=== PATIENT | female | born 1955 | race Caucasian/White ===

== ENCOUNTER → 2016-09-24 | Outpatient (CLI) | payer OTHER | LOC: YCFC.O 15:17 | PROVIDERS: ATTEND Nurse Practitioner Family | DX: J44.9 Chronic obstructive pulmonary disease, unspecified (principal); R63.4 Abnormal weight loss; R10.9 Unspecified abdominal pain ==

== ENCOUNTER → 2016-09-29 | Outpatient (CLI) | payer OTHER ==
--- NOTE | 2016-09-29 09:21 | RAD ---
EXAM DESCRIPTION: XR ABDOMEN 2 VIEWS SUPINE ERECT CLINICAL HISTORY: POS SMOKER, UNRESOLVED COUGH AND WEIGHT LOSS, TENDERNESS COMPARISON: None. IMPRESSION: AP portable supine and upright views of the abdomen show a nonspecific, nonobstructive bowel gas pattern with no obvious free intraperitoneal air. There is a 1 cm irregular calcification overlying the midpole of the left kidney that could represent nephrolithiasis. There appear to be postsurgical changes from posterior bony fusion left greater than right from L3 through S1. Visualized lung bases are unremarkable. Electronically signed by: Thomas Dowell MD 09/29/2016 09:18
--- NOTE | 2016-09-29 10:17 | CT ---
EXAM DESCRIPTION: CT CHEST WITH IV CONTRAST; CT ABDOMEN PELVIS WITH IV CONTRAST CLINICAL HISTORY: WEIGHT LOSS COMPARISON: None. TECHNIQUE: Post-contrast CT images of the chest, abdomen, and pelvis are obtained. CT scan done according to ALARA (As Low As Reasonably Achievable). FINDINGS: CT chest: The heart shows mild to moderate Coronary artery calcifications. Mild elongation and tortuosity of the thoracic aorta is seen with mild atherosclerotic disease noted involving the great vessels. Enlarged anterior right pretracheal lymph node measures 1.7 cm. There is a precarinal lymph node measuring 2.0 x 1.3 cm. Sub- carinal lymph node measures up to 1 cm transverse. No significant axillary lymphadenopathy is seen. No pleural or pericardial effusion. Lungs are normally aerated without acute appearing infiltrate or consolidation. No worrisome pulmonary nodules are identified. Linear area of scarring or atelectasis in the lingula of the left upper lobe is seen. Osseous structures show no aggressive bony lesions. CT abdomen pelvis: The liver and spleen are unremarkable. The gallbladder is not identified. Mild intra and extrahepatic biliary duct dilatation or prominence is seen. The common bile duct measures 7 mm in the head of the pancreas. There is indistinctness near the ampulla in the head of the pancreas with small mostly air-filled diverticulum of the duodenum measuring 18 mm in this region. No abnormal dilatation of the pancreatic duct is seen. Moderate calcified plaque of the arterial vasculature seen. Mild focal dilatation of the infrarenal abdominal aorta measures 2.4 cm. Left adrenal gland mass measures 1.8 x 1.0 cm with Hounsfield units of 68. Nonspecific poorly evaluated 9 mm nodule or mass of the right adrenal gland is seen. There is a 13 mm nonobstructing calcification in a lateral midpole calyx of the left kidney. No ureteral calcification or obstruction is seen. Urinary bladder is unremarkable. There is presumed surgical absence of the uterus. The ovaries are not identified. The appendix is not definitely seen. No secondary signs of acute appendicitis are identified. Small bowel is unremarkable. The colon is unremarkable. No significant diverticular disease is seen. Normal to mildly increased amount of formed fecal material seen throughout the colon limiting evaluation for colon nodules or mass. No abnormal lymphadenopathy or ascites is seen. Osseous structures show no aggressive bony lesions. Degenerative changes of the spine are seen. Postsurgical changes to the lower lumbar spine are noted with evidence of posterior bony fusion at the lowest 3 levels. IMPRESSION: Borderline to mildly enlarged peritracheal and subcarinal lymph nodes are seen. This is nonspecific. Consider followup CT of the chest in 3-6 months to determine stability. Prominence of the intra and extrahepatic biliary ductal system could be related to previous cholecystectomy. Correlate with any elevated liver function tests. If clinically indicated further evaluation with CT or MRI using pancreatic protocol could be useful. There is some indistinctness in the region of the head of the pancreas which is also nonspecific but could be related to diverticulum of the duodenum in this region. Small bilateral adrenal gland masses or nodules are also nonspecific on post-contrast imaging. Consider further evaluation with adrenal gland imaging protocol. Nonobstructing left nephrolithiasis. Other findings as described in body of the report. Electronically signed by: Thomas Dowell MD 09/29/2016 10:15
== END ==
LOC: CT 08:54
PROVIDERS: ATTEND Nurse Practitioner Family
DX: J44.9 Chronic obstructive pulmonary disease, unspecified (principal); K57.92 Diverticulitis of intestine, part unspecified, without perforation or abscess without bleeding; R10.9 Unspecified abdominal pain; N20.0 Calculus of kidney; E27.9 Disorder of adrenal gland, unspecified; Z98.1 Arthrodesis status

== ENCOUNTER → 2017-02-23 | Outpatient (CLI) | payer OTHER | END | disposition home or self-care (01) | LOC: YCFC.O 09:24 | PROVIDERS: ATTEND Anesthesiology Pain Medicine | DX: Z79.891 Long term (current) use of opiate analgesic (principal) ==

== ENCOUNTER → 2017-06-02 | Outpatient (CLI) | payer OTHER | END | disposition home or self-care (01) | LOC: YCFC.O 14:30 | PROVIDERS: ATTEND Anesthesiology Pain Medicine | DX: Z79.891 Long term (current) use of opiate analgesic (principal) ==

== ENCOUNTER → 2017-07-06 | Outpatient (CLI) | payer OTHER | END | disposition home or self-care (01) | LOC: YCFC.O 10:37 | DX: E11.9 Type 2 diabetes mellitus without complications (principal); I10 Essential (primary) hypertension ==

== ENCOUNTER → 2017-10-19 | Outpatient (CLI) | payer OTHER | LOC: YCFC.O 11:14 | DX: B34.9 Viral infection, unspecified (principal) ==

== ENCOUNTER → 2017-11-18 | Outpatient (CLI) | payer OTHER | LOC: YCFC.O 08:58 | DX: E11.9 Type 2 diabetes mellitus without complications (principal); I10 Essential (primary) hypertension; E78.1 Pure hyperglyceridemia ==

== ENCOUNTER → 2017-11-19 | Outpatient (CLI) | payer OTHER ==
--- NOTE | 2017-11-19 09:51 | US ---
EXAM DESCRIPTION:Carotid Duplex CLINICAL HISTORY:HYPERTENSION COMPARISON: None TECHNIQUE: Grayscale and color Doppler sonographic evaluations of carotid and vertebral arterial segments of the neck. FINDINGS: Carotid and vertebral arteries are patent bilaterally with appropriate directions of flow, and biphasic flow waveforms. Mild calcific atherosclerotic deposition along carotid bulbs and proximal internal carotid arteries. Peak systolic flow velocities (in CM/sec) as follows: Right side, CCA proximal, 99 CCA distal, 63 ICA proximal, 56 ICA mid, 60 ICA distal, 64 ECA proximal, 84 Proximal ICA/distal CCA ratio, 0.9 Left side, CCA proximal, 91 CCA distal, 66 ICA proximal, 56 ICA mid, 60 ICA distal, 19 ECA proximal, 63 Proximal ICA/distal CCA ratio, 0.9 IMPRESSION: Carotid and vertebral arteries are patent bilaterally with appropriate directions of flow. No focal flow limiting stenosis along carotid arteries based on velocity criteria. Electronically signed by: Jamil Longo MD 11/19/2017 9:50 AM [employer]
== END ==
LOC: US 09:00
DX: I10 Essential (primary) hypertension (principal)

== ENCOUNTER → 2017-12-14 | Outpatient (CLI) | payer OTHER ==
--- NOTE | 2017-12-15 10:04 | RAD ---
EXAM DESCRIPTION: Chest,2 Views CLINICAL HISTORY: WHEEZING, cough, left-sided chest pain COMPARISON: None TECHNIQUE: PA/lateral FINDINGS: There is no acute appearing cardiac or pulmonary abnormality. Heart size is normal with normal pulmonary vascularity. No pleural effusion or pneumothorax. Linear density in the right infrahilar region could be discoid atelectasis or linear scar. Lesser similar changes in the lingula. No rounded lesion to suggest a mass or nodule. Other areas of the lungs are clear with no consolidating infiltrate. Lateral view shows intact sternum and osteopenic T-spine. No consolidation is seen on lateral view. IMPRESSION: Linear scarring or discoid atelectasis in the right lower lobe and lingula. Electronically signed by: Jeremi Churchill MD 12/15/2017 10:01 AM CDT
== END ==
LOC: RAD 15:06
PROVIDERS: ATTEND Nurse Practitioner Family
DX: R06.2 Wheezing (principal)

== ENCOUNTER → 2018-03-02 | Outpatient (CLI) | payer OTHER | LOC: YCFC.O 07:05 | DX: E78.00 Pure hypercholesterolemia, unspecified (principal) ==

== ENCOUNTER → 2018-05-27 | Outpatient (CLI) | payer OTHER | LOC: YCFC.O 09:25 | PROVIDERS: ATTEND Family Medicine | DX: I10 Essential (primary) hypertension (principal); E78.5 Hyperlipidemia, unspecified; E11.9 Type 2 diabetes mellitus without complications ==

== ENCOUNTER → 2018-09-01 | Outpatient (CLI) | payer OTHER | LOC: LAB.O 15:25 | PROVIDERS: ATTEND Family Medicine | DX: E11.9 Type 2 diabetes mellitus without complications (principal); E78.5 Hyperlipidemia, unspecified; I10 Essential (primary) hypertension ==

== ENCOUNTER → 2019-05-20 | Outpatient (CLI) | payer OTHER | LOC: LAB.O 10:06 | PROVIDERS: ATTEND Family Medicine | DX: Z00.00 Encounter for general adult medical examination without abnormal findings (principal); I10 Essential (primary) hypertension; E11.9 Type 2 diabetes mellitus without complications; E78.5 Hyperlipidemia, unspecified; R53.83 Other fatigue ==

== ENCOUNTER 2019-06-06 05:29 | Day surgery (SDC) | payer OTHER ==
[2019-06-06] MEDS ORDERED: LACTATED RINGERS 1,000 ML ONE (07:16)
[2019-06-06] MEDS ORDERED: MIDAZOLAM INJ 2 MG/2 ML VIAL ONE (07:47)
--- NOTE | 2019-06-06 08:51 | OP ---
DATE OF PROCEDURE: 06/06/19 PROCEDURE: 1. Colonoscopy. SURGEON: Moses Deleon MD ANESTHESIA: General. PROCEDURE: The patient is here for a screening colonoscopy. All risks and benefits were discussed. In the left lateral position, general anesthesia was induced. Digital rectal exam was normal. The colonoscope was then passed. There was a moderately good prep. All surfaces were visualized with irrigation. We were able to reach the cecum, identifying the appendiceal orifice. We did not cannulate the terminal ileum. Upon withdrawal and good visualization, no polyps were identified. Air was removed. The patient tolerated the procedure well. He was awakened and taken to Recovery to be discharged. #[id number] MTDD
[2019-06-06] MEDS ORDERED: LIDOCAINE 1% 10 ML VIAL INJ ONE (10:00)
[2019-06-06] MEDS ORDERED: PROPOFOL 200 MG/20 ML VIAL IV ONE (10:00)
[2019-06-06 10:50] VITALS: BP 131/78; TEMP 96.8; O2SAT 100
== END 2019-06-06 09:15 | disposition home or self-care (01) ==
LOC: AMB 05:29
PROVIDERS: ATTEND Surgery
DX: Z12.11 Encounter for screening for malignant neoplasm of colon (principal); J45.909 Unspecified asthma, uncomplicated; J44.9 Chronic obstructive pulmonary disease, unspecified; E11.9 Type 2 diabetes mellitus without complications; I10 Essential (primary) hypertension; F41.9 Anxiety disorder, unspecified; F32.9 Major depressive disorder, single episode, unspecified; E78.00 Pure hypercholesterolemia, unspecified; Z90.710 Acquired absence of both cervix and uterus; Z90.49 Acquired absence of other specified parts of digestive tract; Z88.8 Allergy status to other drugs, medicaments and biological substances; Z79.82 Long term (current) use of aspirin; Z79.84 Long term (current) use of oral hypoglycemic drugs; Z79.899 Other long term (current) drug therapy
CPT/HCPCS: 00812; 36416; 45378; 82948; J2250; J3490; J7120

== ENCOUNTER → 2019-06-07 | Outpatient (CLI) | payer MEDICARE, OTHER ==
--- NOTE | 2019-06-08 08:36 | CT ---
EXAM DESCRIPTION: Chest w/o Contrast : Computed Tomography. CLINICAL HISTORY: 64 years Female COPD COMPARISON: CT scan of the chest with contrast 09/29/2016. TECHNIQUE: Spiral-axial scans at 5 x 5 mm intervals through the lungs and thorax without IV contrast. 2.5 x 5 mm lung algorithm axial reconstructions. Coronal and sagittal 2.0 Mm reconstructions. Total Exam DLP: 249.28 mGy-cm. This exam was performed according to our departmental dose-optimization program which includes automated exposure control, adjustment of the mA and/or kV according to patient size and/or use of iterative reconstruction technique; to reduce radiation dose to as low as reasonably achievable (ALARA). Nodule measurements under 10 mm are given as mean value of 3 axes diameters. FINDINGS: Lungs and large airways: Peripheral and midline pleural-based blebs predominantly in the upper lung young in a paraseptal distribution. Pleural parenchymal scarring in the inferior right lower lobe and in the inferior lingula. No abnormal nodules or masses. No focal infiltrates. Pleural spaces: No calcifications effusions or pneumothorax. Mediastinum and Eloisa: Evaluation limited due to lack of IV contrast pre- micah lymph node stable measuring 2 x 1.5 cm with prominent fatty hilum. Pretracheal lymph node abutting the aortic arch measuring 1.5 x 1.0 cm with fatty component. Other smaller mediastinal and hilar lymph nodes are stable. Great vessels and Heart: Evaluation limited due to lack of IV contrast. Coronary artery stents and calcifications. Atherosclerotic calcifications in the aortic arch Soft tissues of neck base, axillae, and chest wall: Limited due to lack of IV contrast. Heterogeneous thyroid gland is unremarkable. Upper abdomen: Left adrenal gland slightly enlarged but stable. No free air or free fluid in the included peritoneal space. Osseous structures: Minimal loss of bone density. Hemangioma in the T11 vertebral body stable since the prior study. Intimal spondylosis. Minimal thoracolumbar levoscoliosis. Rudimentary T12 ribs. IMPRESSION: 1. No abnormal nodules or masses. No new infiltrates. Paraseptal emphysematous changes and scarring bilaterally stable since the prior study. 2. Upper mediastinal enlarged lymph nodes may be more fatty since the prior study, indicating lack of inflammatory changes and stability, compared to September 2016. No further chest CT follow-up is recommended. Electronically signed by: Joseph Parks MD 06/08/2019 8:34 AM CDT
--- NOTE | 2019-06-10 17:17 | MAM ---
EXAM DESCRIPTION: 3D Screening BILATERAL : Digital Mammography. CLINICAL HISTORY: 64 years Female SCREENING . No complaints. No personal history of breast cancer. Mother with breast cancer age 60. Sister with ovarian cancer age 40. Menarche age 9. Childbirth. Postmenopausal 10+ years. No HRT. Benign right breast biopsy. Lifetime risk of developing breast cancer (Tyrer-Cuzick model)(%): 15.3. COMPARISON: 2-D digital screening bilateral mammography 02/12/2016. No prior reports available. TECHNIQUE: Bilateral CC and MLO projection full-field images, digital tomosynthesis mammographic technique. Bilateral digital 2-D full-field MLO images. CAD not available for tomosynthesis or 2-D images. FINDINGS: The breast parenchymal density pattern is: Scattered areas of fibroglandular density. No skin thickening or nipple retraction. Biopsy site marker posterior lateral right breast with minimal architectural distortion. Bilateral solitary microcalcifications. Extremely dense fibroglandular tissue in the anterior thirds bilaterally. No new focal, stellate mass or density, focal asymmetry , and no suspicious microcalcifications bilaterally. Stable mammograms compared to prior study. Taking into account, differences in mammographic technique. IMPRESSION: Benign exam. BIRAD CATEGORY: 2 BENIGN FINDINGS. RECOMMENDATIONS: FOLLOW UP: Routine digital bilateral mammographic screening, one year interval from May 2019. Written communication explaining the IMPRESSION and follow-up, will be mailed to the patient and referring health care provider. According to the [employer], yearly mammograms are recommended starting at age 40 and continuing as long as a woman is in good health. Any breast change noted on a breast self-exam should be reported promptly to the patient's healthcare provider. Breast MRI is recommended for women with an approximately 20-25% or greater lifetime risk of breast cancer, including women with a strong family history of breast or ovarian cancer and women who have been treated for Hodgkin's disease. A negative mammographic report should not delay tissue diagnosis in patients with significant clinical history or physical findings. Extremely dense breast tissue limits the sensitivity of digital mammography. Electronically signed by: Joseph Parks MD 06/10/2019 5:15 PM CDT
== END ==
LOC: CT 09:55
PROVIDERS: ATTEND Family Medicine
DX: Z12.31 Encounter for screening mammogram for malignant neoplasm of breast (principal); J44.9 Chronic obstructive pulmonary disease, unspecified; R06.09 Other forms of dyspnea; R59.0 Localized enlarged lymph nodes

== ENCOUNTER → 2019-06-16 | Outpatient (CLI) | payer MEDICARE, OTHER | LOC: NM 08:46 | PROVIDERS: ATTEND Family Medicine | DX: R94.31 Abnormal electrocardiogram [ECG] [EKG] (principal) ==

== ENCOUNTER → 2019-06-27 | Outpatient (CLI) | payer MEDICARE, OTHER ==
--- NOTE | 2019-06-27 14:36 | RAD ---
EXAM DESCRIPTION: Ribs,Right 3 Views CLINICAL HISTORY: RIB PAIN COMPARISON: CT June 07, 2019 IMPRESSION: 3 views of the right ribs shows no displaced fracture or focal bone destruction. No acute infiltrate or consolidation. No pleural effusion or pneumothorax. Electronically signed by: Thomas Dowell MD 06/27/2019 2:34 PM CDT
== END ==
LOC: RAD 13:36
PROVIDERS: ATTEND Nurse Practitioner Family
DX: R07.81 Pleurodynia (principal)

== ENCOUNTER → 2019-10-12 | Outpatient (CLI) | payer MEDICARE, OTHER | LOC: LAB.O 10:47 | PROVIDERS: ATTEND Family Medicine | DX: E78.5 Hyperlipidemia, unspecified (principal) ==

== ENCOUNTER → 2019-11-09 | Outpatient (CLI) | payer MEDICARE, OTHER ==
--- NOTE | 2019-11-09 11:18 | RAD ---
EXAM DESCRIPTION: Chest,2 Views CLINICAL HISTORY: acute upper respiratory infection COMPARISON: December 14, 2017 FINDINGS: Two-view chest x-ray shows cardiomediastinal silhouette and pulmonary vasculature to be within normal limits. The lungs are hyperinflated. Mild chronic appearing increased interstitial markings are again seen with linear interstitial thickening in the anterior aspect of the lingula of the left upper lobe.. Costophrenic angles are sharp. Osseous structures are unremarkable IMPRESSION: A new area of linear atelectasis or developing infiltrate in the lingula of the left upper lobe is seen. Electronically signed by: Thomas Dowell MD 11/09/2019 11:17 AM [employer]
== END ==
LOC: LAB.O 10:33
PROVIDERS: ATTEND Family Medicine
DX: J06.9 Acute upper respiratory infection, unspecified (principal); R91.8 Other nonspecific abnormal finding of lung field

== ENCOUNTER 2019-11-11 14:09 | Emergency (ER) | payer MEDICARE, MEDICAID ==
[2019-11-11] MEDS ORDERED: SODIUM CHLORIDE 0.9% (FLUSH) 10 ML SYG IV PRN (14:27)
[2019-11-11] MEDS ORDERED: SODIUM CHLORIDE 0.9% 1000ML 2,000 ML IVS ONE (14:27)
[2019-11-11] MEDS ORDERED: CEFEPIME 2 GM in SODIUM CHL 0.9% 50ML MIN-BAG+ 50 ML IVPB ONE (14:29)
--- NOTE | 2019-11-11 14:31 | ED.PDOC ---
History of Present Illness - General Chief Complaint: Respiratory Problem Stated Complaint: cough,fever Time Seen by Provider: 11/11/19 14:27 Source: patient Exam Limitations: no limitations - History of Present Illness Comments: 64 yo F who presents for productive cough with associated fever. Sx onset originally two weeks ago, has been on amoxicillin, then doxycycline without improvement. At PCP appointment last Thursday she was given a steroid and Rocephin shot. She did not improve and two days ago followed up, was placed on Levaquin, has had three doses without improvement in sx and therefore was referred to ED. Also endorses sinus pressure headache and intermittent SOB with exertion. Denies congestion, body aches, ear pain, sore throat, CP, abd pain, v/d, urinary sx, back pain, neck pain/stiffness. Allergies/Adverse Reactions: Allergies Azithromycin Allergy (Verified 11/11/19 14:28) Home Medications: Ambulatory Orders Albuterol Inhaler [Ventolin Hfa Inhaler] 108 mcg IN PRN 11/11/19 Albuterol Sulfate Nebs [Proventil Nebs] 2.5 mg INH Q4H 11/11/19 Alprazolam [Xanax] 1 mg PO BID 11/11/19 Amlodipine Besylate 5 mg PO BEDTIME 11/11/19 Aspirin [Aspirin Adult Low Dose] 81 mg PO DAILY 11/11/19 Atorvastatin Calcium [Lipitor] 20 mg PO BEDTIME 11/11/19 Benzonatate Perles [Tessalon Perles] 100 mg PO PRN 11/11/19 Tabpriqapp-Ewqyhedkbfuir-Quoyv [Fioricet] 1 cap PO PRN 11/11/19 Dextromethorphan-Guaifenesin [Mucinex Dm Maximum Streng 60-1200 mg] 1 tab PO BID 11/11/19 Fluticasone Furoate-Vilanterol [Breo Ellipta] 1 inh IN DAILY 11/11/19 HYDROcodone 10MG/APAP 325MG [[place] 10/325] 1 tab PO QID 11/11/19 Ibuprofen 800 mg PO TID PRN 11/11/19 Lisinopril & Hydrochlorothiazi [Lisinopril/Hydrochlorothi 20-25 mg] 1 tab PO DAILY 11/11/19 Metformin HCl [Metformin Hydrochloride E] 500 mg PO BID 11/11/19 Prednisone 60 mg PO DAILY 5 Days tab 11/11/19 Pregabalin 50 mg PO TID 11/11/19 Zolpidem Tartrate [Ambien] 10 mg PO BEDTIME 11/11/19 levoFLOXacin [Levaquin] 500 mg PO DAILY 11/11/19 Review of Systems - Review of Systems Constitutional: States: fever. Denies: chills EENTM: Denies: blurred vision, double vision, ear pain, nose pain, throat pain Respiratory: States: cough, short of breath. Denies: orthopnea, wheezing Cardiology: Denies: chest pain, edema, palpitations, syncope Gastrointestinal/Abdominal: Denies: abdominal pain, diarrhea, nausea, vomiting Genitourinary: Denies: dysuria, frequency, hematuria Musculoskeletal: Denies: back pain, neck pain Skin: Denies: lesions, rash Neurological: States: headache. Denies: numbness, weakness Endocrine: Denies: increased thirst, increased urine Past Medical History (General) - Patient Medical History Hx Congestive Heart Failure: No Hx Hypertension: Yes Hx Diabetes: Yes Hx Gastroesophageal Reflux: Yes Hx MRSA: No Surgical History: cholecystectomy, Hysterectomy - Vaccination History Hx Influenza Vaccination: Yes Hx Pneumococcal Vaccination: Yes - Social History Hx Tobacco Use: Yes Family Medical History - Family History Mother Family History: Unknown Living Status: Unknown Physical Exam - Physical Exam General Appearance: Alert, Comfortable, No apparent distress, Well Developed, Well Nourished Eye Exam: bilateral normal ENT Exam: normal ENT inspection Neck: non-tender, full range of motion, supple, normal inspection Respiratory: chest non-tender, lungs clear, normal breath sounds, no respiratory distress, no accessory muscle use Cardiovascular/Chest: normal peripheral pulses, no edema, no gallop, no JVD, no murmur, other - mild tachycardia Gastrointestinal/Abdominal: non tender, soft, no organomegaly, no pulsatile mass Extremity: normal range of motion, non-tender, normal inspection, no pedal edema, no calf tenderness, normal capillary refill Neurologic: no motor/sensory deficits, alert, normal mood/affect, oriented x 3 Skin Exam: normal color, warm/dry Progress - Progress Progress: 11/11/19 14:30 Pt with one SIRS criteria, however reports fever at home, with suspected infection. Will activate sepsis protocol. 11/11/19 16:[address] Moffett, agrees with workup and plan for d/c. Requests continuation of antibx and requesting adding prednisone. I have explained and reviewed all results with the pt. Pt has done well with prednisone in the past. Pt is eager to be d/c home. I explained that emergent conditions may arise and to return to the ER for new, worsening, or any persistent conditions. I've explained the importance of f/u for recheck. All questions and concerns addressed at this time. Pt understands and agrees with plan. Pt well appearing, NAD, is stable for discharge. Florence Winkler MD Emergency Medicine Physician Billing Number [id number] - Results/Orders Results/Orders: 11/11/19 14:27 Telemetry .ONCE Sodium Chloride 0.9% (Flush) [Saline Flush Syringe] 10 ml IV PRN PRN Sodium Chloride 0.9% 1000ML [Ns 1000 ml] 2,000 ml IVS ONCE EKG Stat Pulse Ox Stat 11/11/19 14:29 EKG Assessment ONCE Pulse Oximetry Assessment DAILY 11/11/19 15:10 BLOOD CULTURE Stat 11/11/19 15:16 Hold Metformin x 48Hrs [id number] Laboratory Results - last 24 hr 11/11/19 11/11/19 11/11/19 14:35 14:35 14:50 WBC 13.9 H RBC 4.94 Hgb 14.7 Hct 43.0 MCV 87.0 MCH 29.7 MCHC 34.2 RDW 13.9 Plt Count 422 H MPV 6.9 L Absolute Neuts (auto) 7.80 H Absolute Lymphs (auto) 4.90 H Absolute Monos (auto) 0.90 H Absolute Eos (auto) 0.30 Absolute Basos (auto) 0.00 Neutrophils % 56.2 Lymphocytes % 35.1 Monocytes % 6.5 Eosinophils % 1.9 Basophils % 0.3 Sodium 137 Potassium 3.9 Chloride 102 Carbon Dioxide 26 Anion Gap 12.9 BUN 19 H Creatinine 0.48 L BUN/Creatinine Ratio 39.6 H Random Glucose 130 H Serum Osmolality 277.8 Lactic Acid 1.3 Calcium 9.7 Total Bilirubin 0.4 AST 25 ALT 20 Alkaline Phosphatase 89 Serum Total Protein 8.1 Albumin 4.1 Globulin 4.0 H Albumin/Globulin Ratio 1.0 L Urine Color Urine Appearance Urine pH Ur Specific [place] Urine Protein Urine Glucose (UA) Urine Ketones Urine Blood Urine Nitrite Urine Bilirubin Urine Urobilinogen Ur Leukocyte Esterase Urine RBC Urine WBC Ur Epithelial Cells Urine Bacteria 11/11/19 15:57 WBC RBC Hgb Hct MCV MCH MCHC RDW Plt Count MPV Absolute Neuts (auto) Absolute Lymphs (auto) Absolute Monos (auto) Absolute Eos (auto) Absolute Basos (auto) Neutrophils % Lymphocytes % Monocytes % Eosinophils % Basophils % Sodium Potassium Chloride Carbon Dioxide Anion Gap BUN Creatinine BUN/Creatinine Ratio Random Glucose Serum Osmolality Lactic Acid Calcium Total Bilirubin AST ALT Alkaline Phosphatase Serum Total Protein Albumin Globulin Albumin/Globulin Ratio Urine Color Yellow Urine Appearance Clear Urine pH 6.5 Ur Specific [place] 1.015 Urine Protein Negative Urine Glucose (UA) Negative Urine Ketones Negative Urine Blood Negative Urine Nitrite Negative Urine Bilirubin Negative Urine Urobilinogen 0.2 Ur Leukocyte Esterase Trace H Urine RBC 0-1 Urine WBC 0-1 Ur Epithelial Cells 0-1 Urine Bacteria 0 Microbiology 11/11/19 15:44 Influenza Types A & B (PCR) - Final Nose CXR: EXAM DESCRIPTION: Chest,2 Views CLINICAL HISTORY: 64 years Female, cough COMPARISON: 11/09/2019 TECHNIQUE: PA and lateral radiographs of the chest were obtained. FINDINGS: Trachea is midline.The cardiomediastinal silhouette is normal in size. The pulmonary vasculature is within normal limits.The lungs are clear with no acute consolidation.No evidence of pleural effusions.No evidence of pneumothorax. IMPRESSION: No acute cardiopulmonary process. Electronically signed by: Brenda Ragland MD 11/11/2019 2:50 PM PIPE [employer] CTA chest: EXAM DESCRIPTION: CTA Chest CLINICAL HISTORY: SOB COMPARISON: June 07, 2019 TECHNIQUE: Postcontrast CT images of the chest are obtained using pulmonary embolism imaging protocol. Three-D MIP reconstructed images of the arterial vasculature are obtained. Coronal and sagittal reconstructed images of the also provided. This exam was performed according to our departmental dose- optimization program, which includes automated exposure control, adjustment of the mA and/or kV according to patient size and/or use of iterative reconstruction technique . FINDINGS: The heart is enlarged. Moderate coronary artery calcifications are seen. Elongation and tortuosity the thoracic aorta. Mild scattered calcified plaque. No definite filling defects or emboli are seen in the pulmonary arteries. Mild enlarged mediastinal and hilar lymphadenopathy with previous exam without axillary lymphadenopathy. No pleural or pericardial effusion. Visualized upper abdomen shows no findings. Enlarged left adrenal gland with Hounsfield units of 14. This is stable compared to CT dated September 29, 2016. Mild intrahepatic biliary ductal dilatation is also stable. Lungs are normally aerated. Mild centrilobular emphysematous changes are seen. Mild bronchiectasis and scarring in the medial segment of the right middle lobe mildly increased from previous. No worrisome pulmonary nodules. No aggressive bony lesions. Mild spondylitic changes of the spine. IMPRESSION: No CT evidence of pulmonary embolism. Mild centrilobular emphysematous changes to the chest. Enlarged left adrenal gland stable compared to CT abdomen pelvis September 29, 2016. Electronically signed by: Thmoas Dowell MD 11/11/2019 3:54 PM PIPE [employer]TER Vital Signs - 24 hr 11/11/19 11/11/19 11/11/19 14:18 14:57 15:00 Temperature 97.6 F Pulse Rate [ 107 H 72 Left Brachial] Respiratory 20 20 20 Rate Blood Pressure 122/88 113/83 [Left Arm] O2 Sat by Pulse 98 95 Oximetry - EKG/XRAY/CT EKG: no ST T wave changes Comments: NSR, rate of 71 Departure - Departure Clinical Impression: COPD (chronic obstructive pulmonary disease) Qualifiers: COPD type: COPD with acute exacerbation Qualified Code(s): J44.1 - Chronic obstructive pulmonary disease with (acute) exacerbation Time of Disposition: 16:13 Disposition: Discharge to Home or Self Care Health Concerns: condition: stable Departure Forms: ED Discharge - Pt. Copy, Patient Portal Self Enrollment Instructions: COPD Including Emphysema (DC) Referrals: Chaitanya Moffett MD [Primary Care Provider] - 1-5 Days Prescriptions: Prednisone 60 mg PO DAILY 5 Days tab Home Medications: Ambulatory Orders Albuterol Inhaler [Ventolin Hfa Inhaler] 108 mcg IN PRN 11/11/19 Albuterol Sulfate Nebs [Proventil Nebs] 2.5 mg INH Q4H 11/11/19 Alprazolam [Xanax] 1 mg PO BID 11/11/19 Amlodipine Besylate 5 mg PO BEDTIME 11/11/19 Aspirin [Aspirin Adult Low Dose] 81 mg PO DAILY 11/11/19 Atorvastatin Calcium [Lipitor] 20 mg PO BEDTIME 11/11/19 Benzonatate Perles [Tessalon Perles] 100 mg PO PRN 11/11/19 Gmnlxlyjts-Ozlnknpiyltkd-Ykbcb [Fioricet] 1 cap PO PRN 11/11/19 Dextromethorphan-Guaifenesin [Mucinex Dm Maximum Streng 60-1200 mg] 1 tab PO BID 11/11/19 Fluticasone Furoate-Vilanterol [Breo Ellipta] 1 inh IN DAILY 11/11/19 HYDROcodone 10MG/APAP 325MG [[place] 10/325] 1 tab PO QID 11/11/19 Ibuprofen 800 mg PO TID PRN 11/11/19 Lisinopril & Hydrochlorothiazi [Lisinopril/Hydrochlorothi 20-25 mg] 1 tab PO DAILY 11/11/19 Metformin HCl [Metformin Hydrochloride E] 500 mg PO BID 11/11/19 Prednisone 60 mg PO DAILY 5 Days tab 11/11/19 Pregabalin 50 mg PO TID 11/11/19 Zolpidem Tartrate [Ambien] 10 mg PO BEDTIME 11/11/19 levoFLOXacin [Levaquin] 500 mg PO DAILY 11/11/19 Additional Instructions: Follow up: [facility] As needed, if symptoms worsen
[2019-11-11 14:52] VITALS: TEMP 97.6
--- NOTE | 2019-11-11 14:52 | RAD ---
EXAM DESCRIPTION: Chest,2 Views CLINICAL HISTORY: 64 years Female, cough COMPARISON: 11/09/2019 TECHNIQUE: PA and lateral radiographs of the chest were obtained. FINDINGS: Trachea is midline.The cardiomediastinal silhouette is normal in size. The pulmonary vasculature is within normal limits.The lungs are clear with no acute consolidation.No evidence of pleural effusions.No evidence of pneumothorax. IMPRESSION: No acute cardiopulmonary process. Electronically signed by: Brenda Ragland MD 11/11/2019 2:50 PM [facility]
[2019-11-11] MEDS ORDERED: SODIUM CHL 0.9% 50ML MIN-BAG+ 50 ML IVPB ONE (15:16)
[2019-11-11] MEDS ORDERED: CEFEPIME 2 GM VIAL ONE (15:16)
--- NOTE | 2019-11-11 15:55 | CT ---
EXAM DESCRIPTION: CTA Chest CLINICAL HISTORY: SOB COMPARISON: June 07, 2019 TECHNIQUE: Postcontrast CT images of the chest are obtained using pulmonary embolism imaging protocol. Three-D MIP reconstructed images of the arterial vasculature are obtained. Coronal and sagittal reconstructed images of the also provided. This exam was performed according to our departmental dose-optimization program, which includes automated exposure control, adjustment of the mA and/or kV according to patient size and/or use of iterative reconstruction technique . FINDINGS: The heart is enlarged. Moderate coronary artery calcifications are seen. Elongation and tortuosity the thoracic aorta. Mild scattered calcified plaque. No definite filling defects or emboli are seen in the pulmonary arteries. Mild enlarged mediastinal and hilar lymphadenopathy with previous exam without axillary lymphadenopathy. No pleural or pericardial effusion. Visualized upper abdomen shows no findings. Enlarged left adrenal gland with Hounsfield units of 14. This is stable compared to CT dated September 29, 2016. Mild intrahepatic biliary ductal dilatation is also stable. Lungs are normally aerated. Mild centrilobular emphysematous changes are seen. Mild bronchiectasis and scarring in the medial segment of the right middle lobe mildly increased from previous. No worrisome pulmonary nodules. No aggressive bony lesions. Mild spondylitic changes of the spine. IMPRESSION: No CT evidence of pulmonary embolism. Mild centrilobular emphysematous changes to the chest. Enlarged left adrenal gland stable compared to CT abdomen pelvis September 29, 2016. Electronically signed by: Thomas Dowell MD 11/11/2019 3:54 PM CUSTOMER ACCOUNT ADMINISTRATOR
[2019-11-11 16:16] VITALS: BP 145/62; O2SAT 96
== END 2019-11-11 16:27 | disposition home or self-care (01) ==
LOC: ER 14:09
DX: J44.1 Chronic obstructive pulmonary disease with (acute) exacerbation (principal); R51 Headache; I10 Essential (primary) hypertension; E11.9 Type 2 diabetes mellitus without complications; K21.9 Gastro-esophageal reflux disease without esophagitis; Z87.891 Personal history of nicotine dependence; Z79.899 Other long term (current) drug therapy; Z79.84 Long term (current) use of oral hypoglycemic drugs; Z88.1 Allergy status to other antibiotic agents; Z79.82 Long term (current) use of aspirin
CPT/HCPCS: 71046; 71275; 80053; 81001; 83605; 85025; 87040; 87502; 93005; J0692; J7030; J7050

== ENCOUNTER → 2020-02-14 | Outpatient (CLI) | payer MEDICARE, MEDICAID | LOC: YCFC.O 09:31 | PROVIDERS: ATTEND Family Medicine | DX: E11.9 Type 2 diabetes mellitus without complications (principal); E78.5 Hyperlipidemia, unspecified ==

== ENCOUNTER → 2020-10-24 | Outpatient (CLI) | payer MEDICARE, OTHER ==
--- NOTE | 2020-10-24 15:20 | US ---
EXAM DESCRIPTION: Venous,Lower Extremity RT: ULTRASOUND. CLINICAL HISTORY: PAIN OF RIGHT CALF COMPARISON: None Available. TECHNIQUE: Street-scale and doppler sonographic evaluation of the deep venous system of the right lower extremity. FINDINGS: Doppler evaluation shows normal color flow and normal phasicity and augmentation of the right common femoral vein, right femoral vein, popliteal vein, right greater saphenous vein, junction with the CFV. Also normal color flow and normal phasicity and augmentation of the right peroneal, and posterior tibial vein. The right lower extremity deep veins were completely compressible; normal occlusion with transducer pressure. Street-scale survey showed no echogenic thrombus within these veins. IMPRESSION: 1. Duplex ultrasound evaluation of the right lower extremity deep venous system showing no evidence of thrombosis. Electronically signed by: Joseph Parks MD 10/24/2020 3:19 PM PROCESSING [facility]
== END ==
LOC: YCFC.O 12:57
PROVIDERS: ATTEND Family Medicine
DX: M79.661 Pain in right lower leg (principal)